=== PATIENT | male | born 1990 | race Caucasian/White ===

== ENCOUNTER 2017-06-07 18:23 | Emergency (ER) | payer BC ==
--- NOTE | ~2017-06-07 | CR281 ---
[facility] A Service of [facility] & [facility] [place] RADIOLOGY TEXT RESULTS PATIENT: KIRSTIE BARRON II LOCATION: [facility] : [birth year] UNIT #: [id number] AGE: [address]: DAMIAN KINGSTON APRN SEX: M ORDER DR: [id number] [facility] [address] [place] [address]. [place], [place] [address] [id number] MR#: [id number] Acc #: [id number] NAME: KIRSTIE BARRON II : 1990 SEX: M STUDY DATE/TIME: 06/07/2017 18:33 UNIT: [facility] ROOM: STUDY DESCRIPTION: CR Wrist Min 3 View Lt Attending Physician: Damian Kingston Aprn Ordering Physician: Ed Dante Beasley M.D. Primary Care Physician: No Primary Care Physician MEDICAL IMAGING REPORT This report is preliminary unless electronic signature is present EXAM Left wrist series, 06/07/2017. HISTORY Trauma. Fell playing basketball. Pain. Mild swelling. Evaluate for fracture. FINDINGS AP, lateral, and oblique radiographs of the left wrist show normal bony mineralization. No traumatic fracture or malalignment. There is no soft tissue defect, subcutaneous air, or radiodense foreign body. Dictated by... Jefferson Agrawal M.D. THIS IS AN ELECTRONICALLY VERIFIED REPORT Jefferson Agrawal M.D. at 06/08/2017 6:49 PM JOHNNA/raymond TD: 06/08/2017 11:23 JOB #: [id number] MEDICAL IMAGING REPORT Page 1 of 1 COPY
== END 2017-06-07 20:10 | disposition home or self-care (01) ==
LOC: CFTX 18:23 → CED 18:23 → CFTX 19:15
DX: S63.502A Unspecified sprain of left wrist, initial encounter (principal); F17.210 Nicotine dependence, cigarettes, uncomplicated; X58.XXXA Exposure to other specified factors, initial encounter; Y92.830 Public park as the place of occurrence of the external cause
CPT/HCPCS: 29125; 73110; 99283

== ENCOUNTER 2017-08-08 17:33 | Emergency (ER) | payer BC ==
[~2017-08-08] VITALS: Ht 185.4 cm; Wt 83.0 kg
--- NOTE | ~2017-08-08 | CR72 ---
[facility] A Service of [facility] RADIOLOGY TEXT RESULTS PATIENT: KIRSTIE BARRON LOCATION: [facility] : [birth year] UNIT #: [id number] AGE: [address]: Torito Tena MD SEX: M ORDER DR: [id number] [place], [place] [address] [id number] MR#: [id number] Acc #: [id number] NAME: KIRSTIE BARRON : 1990 SEX: M STUDY DATE/TIME: 08/08/2017 18:18 UNIT: [facility] ROOM: STUDY DESCRIPTION: CR Chest Single View Portable Attending Physician: Torito Tena M.D. Ordering Physician: Torito Tena M.D. Primary Care Physician: Primary Care Physician No MEDICAL IMAGING REPORT This report is preliminary unless electronic signature is present EXAM AP portable chest DATE 08/08/2017 HISTORY 27-year-old male with shortness of breath, acute mental status changes and tachycardia today. 10-year smoking history. COMPARISON None FINDINGS A single AP portable view of the chest shows both lungs to be clear. The heart is normal in size. The mediastinal contour is normal. No significant bone abnormalities are seen. IMPRESSION Normal portable chest. Dictated by... Neeru Rice M.D. THIS IS AN ELECTRONICALLY VERIFIED REPORT Neeru Rice M.D. at 08/10/2017 6:16 AM MARIE/mis TD: 08/10/2017 02:00 JOB #: [id number] MEDICAL IMAGING REPORT [facility] A Service of [facility] RADIOLOGY TEXT RESULTS PATIENT: KIRSTIE BARRON LOCATION: [facility] : [birth year] UNIT #: [id number] AGE: [address]: Torito Tena MD SEX: M ORDER DR: Page 1 of 1 COPY
--- NOTE | ~2017-08-08 | EKG ---
PATIENT: KIRSTIE BARRON UNIT #: [id number] Ventricular Rate: 155 BPM Atrial Rate: 155 BPM P-R Interval: 130 ms QRS Duration: 100 ms Q-T Interval: 268 ms QTC Calculation(Bezet): 430 ms P [place]: 63 degrees Calculated R [place]: 70 degrees Calculated T [place]: 10 degrees Diagnosis Line: Sinus tachycardia Diagnosis Line: Poor R wave progression questionable lead position Diagnosis Line: or body habitus Diagnosis Line: Abnormal ECG Diagnosis Line: No previous ECGs available Diagnosis Line: Confirmed by NEENA HYMAN MD ([id number]) on 08/09/2017 Diagnosis Line: 11:06:00 PM INTERPRETING MD: YENNI LARSON
[2017-08-08 18:25] LABS: BASOPHIL# 0.1 X10e3 (0-0.3); BASOPHIL% 0.8 % (0-2.5); EOSINOPHIL# 0.1 X10e3 (0-0.7); EOSINOPHIL% 1.7 % (0.0-7.0); HEMATOCRIT 40.2 % (38.0-50.0); HEMOGLOBIN 13.9 gm/dL (13.0-16.0); LYMPHOCYTE# 1.7 X10e3 (1.0-3.5); LYMPHOCYTE% 26.4 % (17.0-45.0); MEAN CELL VOLUME 95.1 FL (83-96); MEAN CORPUSCULAR HEMOGLOBIN 32.9 PG (28-34); MEAN CORPUSCULAR HGB CONC 34.6 g/dL (30-36); MEAN PLATELET VOLUME 6.9 FL (6.5-11.5); MONOCYTE# 0.5 X10e3 (0-1.0); MONOCYTE% 7.4 % (3.0-12.0); NEUTROPHIL# 4.1 X10e3 (1.5-7.1); NEUTROPHIL% 63.7 % (40-75); PLATELET COUNT 256 X10e3 (140-420); RED BLOOD COUNT 4.22 X10e (3.90-5.60); RED CELL DISTRIBUTION WIDTH 13.4 % (11.0-15.5); WHITE BLOOD COUNT 6.5 X10e3 (4.0-10.5)
[2017-08-08 18:35] LABS: DIFF IND NO
[2017-08-08 18:38] LABS: POC - CKMB 1.5 ng/mL (0.0-7.9); POC - TROPONIN <0.05 ng/mL (<=0.05)
[2017-08-08 18:49] LABS: ALBUMIN SERUM 4.2 g/dL (3.5-5.0); ALKALINE PHOSPHATASE 62 U/L (32-92); ALT (SGPT) 25 U/L (10-40); AST (SGOT) 28 U/L (10-42); BILIRUBIN,TOTAL 0.1 mg/dL (0.2-2.0); BLOOD UREA NITROGEN 10 mg/dL (9-23); BUN/CREATININE RATIO 8.33; CALCIUM SERUM 8.8 mg/dL (8.4-10.2); CARBON DIOXIDE 24 mmol/L (22-31); CHLORIDE 106 mmol/L (100-111); CREATININE SERUM 1.2 mg/dL (0.6-1.4); GLOM FILT RATE Estimated 81.8 mL/min (>60); GLUCOSE FASTING 133 mg/dL (70-110); MAGNESIUM 1.9 mg/dL (1.6-3.0); POTASSIUM 3.9 mmol/L (3.5-5.1); PROTEIN TOTAL SERUM 7.1 g/dL (6.0-8.3); SODIUM 139 mmol/L (135-145)
[2017-08-08 18:50] LABS: BILIRUBIN, DIRECT <0.1 mg/dL (0.0-0.2)
[2017-08-08 18:53] LABS: ALCOHOL BLOOD 303 mg/dL (0)
[2017-08-08 20:08] LABS: AMPHETAMINE NEG (NEG); BARBITURATES NEG (NEG); BENZODIAZEPINES NEG (NEG); COCAINE NEG (NEG); MARIJUANA POS (NEG); OPIATES NEG (NEG); TRICYCLIC ANTIDEPRESSANTS NEG (NEG); U METHADONE NEG (NEG)
== END 2017-08-08 20:26 | disposition home or self-care (01) ==
LOC: CED 17:33
PROVIDERS: Emergency Medicine
DX: R00.0 Tachycardia, unspecified (principal); F10.129 Alcohol abuse with intoxication, unspecified; F17.200 Nicotine dependence, unspecified, uncomplicated
CPT/HCPCS: 36415; 71010; 80048; 80076; 80307; 82553; 83735; 84484; 85025; 93005; 96360; 99285; G0480; J3411; J3475